=== PATIENT | male | born 1990 | race Two or more races ===

== ENCOUNTER → 2024-08-11 | Outpatient (BNVA) | payer MEDICAID, SELFPAY | END | disposition home or self-care (01) | PROVIDERS: PCP Nurse Practitioner Family; Referring Provider Nurse Practitioner Family; Visit Provider Nurse Practitioner Family | DX: Z71.2 Person consulting for explanation of examination or test findings (principal); R94.5 Abnormal results of liver function studies; E55.9 Vitamin D deficiency, unspecified; E78.5 Hyperlipidemia, unspecified; E66.9 Obesity, unspecified; Z68.30 Body mass index [BMI] 30.0-30.9, adult; R73.03 Prediabetes | CPT/HCPCS: 99213 ==

== ENCOUNTER 2024-09-15 18:53 | Emergency (ER) | payer MEDICAID, SELFPAY ==
[2024-09-15 19:15] VITALS: BP 128/81; PULSE 83; RESP 18; TEMP 37.2; O2SAT 98
--- NOTE | 2024-09-15 19:22 | XR_ITS ---
Examination: Tibia-Fibula, left , 2 views Technique: Tibia-fibula AP lateral 2 views Date and time of exam: September 15, 2024 1929 hrs. Indications: Patient slipped and fell 2 days ago with injury to the lower leg, lower leg pain. Findings: No acute fracture No dislocation No foreign body Impression: No acute fracture
--- NOTE | 2024-09-15 20:02 | PD.EDLOWEX ---
Lower Extremity Injury RME/HPI General Chief Complaint: Fall Stated Complaint: Fall 2 days ago left lower leg pain Time Seen by Provider: 09/15/24 19:22 Arrival date/time: 09/15/24 18:53 34M with history of preDM presents to ED with L lower leg pain after he stepped through a board and cut himself. Patient has not had a tetanus shot in the past 5 years. Limitations: no limitations Related Data Previous Rx's ?Medication ?Instructions ?Recorded ergocalciferol (vitamin D2) 1,250 50,000 unit PO QWEEK 12 weeks #12 08/11/24 mcg (50,000 unit) capsule caps cephalexin 500 mg capsule 500 mg PO QID 10 days #40 caps 09/15/24 Allergies Allergy/AdvReac Type Severity Reaction Status Date / Time aspirin Allergy Verified 08/11/24 15:14 Review of Systems Review of Systems Systems Reviewed: All systems reviewed, normal except as documented Constitutional Constitutional: Reports system reviewed and no additional complaints, except as documented, Denies fever(s) and Denies headache(s) ENT Ears, Nose, Mouth, and Throat: Denies disequilibrium and Denies headache(s) Cardiovascular Cardiovascular: Reports system reviewed and no additional complaints, except as documented, Denies chest pain and Denies dyspnea Respiratory Respiratory: Reports system reviewed and no additional complaints, except as documented, Denies cough and Denies dyspnea Gastrointestinal Gastrointestinal: Reports system reviewed and no additional complaints, except as documented, Denies abdominal pain, Denies nausea and Denies vomiting Musculoskeletal Musculoskeletal: Reports as per HPI and Reports arthralgias Neurologic Neurologic: Reports system reviewed and no additional complaints, except as documented, Denies confusion, Denies disequilibrium and Denies headache(s) Psychiatric Psychiatric: Denies confusion Past Medical History Past Medical History CARDIAC: Negative Congestive Heart Failure RESPIRATORY: Negative Chronic Obstructive Pulmonary Disease (COPD) GENITOURINARY: Negative Renal Disease ENDOCRINE: Negative Diabetes Mellitus Type 1 or Diabetes Mellitus Type 2 Social History SMOKING STATUS: Never smoker SECOND HAND EXPOSURE: Yes ED Exam General Limitations: Present no limitations General appearance: Present alert and in no apparent distress Head Head exam: Present atraumatic Eye Eye exam: Present normal appearance, PERRL and EOMI ENT ENT exam: Present normal exam, normal oropharynx and mucous membranes moist Neck Neck exam: Present normal inspection, full ROM and trachea midline Chest Chest inspection: Present normal inspection and symmetric chest wall rise Respiratory Respiratory exam: Present normal lung sounds bilaterally Cardiovascular Cardiovascular exam: Present regular rate, normal rhythm and normal heart sounds Abdominal Exam Abdominal exam: Present soft and normal bowel sounds Extremities Exam Extremities exam: Present full ROM Expanded Lower Extremity Exam Lower leg exam: Present full ROM (L), tenderness and abrasion Back Exam Back exam: Present normal inspection and full ROM Neurological Exam Neurological exam: Present alert, oriented X3 and CN II-XII intact Psychiatric Psychiatric exam: Present normal affect and normal mood Skin Skin exam: Present warm, dry, intact and normal color Course Quality Measures none Orders Category Date Time Status CT ankle LT wo con Stat Exams 09/15/24 20:06 Completed US venous doppler LE LT Stat Exams 09/15/24 20:07 Completed XR tibia fibula LT 2V Stat Exams 09/15/24 19:22 Completed Tet,Diphth,Pertuss(Acell)-Tdap [Boostrix Vacc] Med 09/15/24 20:08 Discontinued 0.5 ml IMI .ONCE ONE cephALEXin [Keflex] Med 09/15/24 22:06 Discontinued 1,000 mg PO X1 ONE Vital Signs Vital signs: Vital Signs Temperature 98.9 F 09/15/24 19:15 Pulse Rate 83 09/15/24 19:15 Respiratory Rate 18 09/15/24 19:15 Blood Pressure 128/81 09/15/24 19:15 Pulse Oximetry (%) 98 09/15/24 19:15 Oxygen Delivery Method Room Air 09/15/24 19:15 O2 at 98% on RA and WNLs Extremity Injury, Lower MDM Narrative MDM Narrative:: 34M with history of preDM presents to ED with L lower leg pain after he stepped through a board and cut himself. Patient has not had a tetanus shot in the past 5 years. Physical exam reveals healing abrasion on L lower leg. No obvious redness or swelling, but quite tender. ROM intact. Patient is afebrile, calm, and alert. XR no fx. US no DVT. CT cellulitis pattern with no gas/nec fasc. ABX and tdap given. Patient data External records reviewed:: [facility] previous records Clinical information provided by:: patient Social determinants that could affect healthcare access:: none Patient has the following chronic illnesses:: preDM How is presenting disease/condition affected by chronic disease/condition?: exacerbated by Evaluation data The following diagnostics were reviewed and interpreted by me:: radiology exam(s) Lab and/or radiology exams considered but not ordered:: ordered Interpretation Summary: above Medications / Prescriptions Medications or Prescriptions considered but not ordered:: ordered Medication administrations:: Medication Administration History Discontinued Medications Cephalexin HCl (Cephalexin 250 Mg Capsule) 1,000 mg PO X1 ONE Stop: 09/15/24 22:07 Last Admin: 09/15/24 22:21 Dose: 1,000 mg Documented By: CVL Diphtheria/Tetanus/Acell Pertussis (Diphth,Pertuss(Acell),Tet Vac 0.5 Ml Vial) 0.5 ml IMi .ONCE ONE Stop: 09/15/24 20:09 Last Admin: 09/15/24 21:09 Dose: 0.5 ml Documented By: above Consultations Consultation(s) initiated? (list below): No Diagnosis Extremity Injury, Lower Differential Diagnosis: ankle sprain and strain, acute internal derangement of knee, puncture wound of foot, fracture of toe, ankle fracture and other (cellulitis, skin abrasion, neck fasc, leg pain, DVT) Most likely diagnosis given after review of the tests above:: skin abrasion and cellulitis Admission Indicated Admission indicated?: not indicated Admission Request Was there a request for admission?: No Disposition Plan Disposition Plan: Discharge Discharge Attestation Discharge Attestation: The patient and all family members were given an opportunity to ask questions and understood the discharge instructions. Discharge instructions specifically effects, indications for sooner follow up or return to the emergency department, and the expected course of current diagnosis. Patient condition: Stable Discharge Plan Plan Patient Disposition: HOME (Self Care) Disposition Comment: Stable Prescriptions/Referrals Prescriptions/Med Rec: New cephalexin 500 mg capsule 500 mg PO QID 10 Days Qty: 40 0RF No Action ergocalciferol (vitamin D2) 1,250 mcg (50,000 unit) capsule 50,000 unit PO QWEEK 84 Days Qty: 12 0RF Referrals: Rekha Anaya FNP [Primary Care Provider] - In 1 week Problem List Clinical Impression: Cellulitis, Abrasion of skin Patient/Caregiver Discharge Instructions Education Materials: ED Cellulitis Additional Instructions: Please follow-up with PCP within 24-48 hours and return immediately if symptoms worsen. Print Language: Maltese Stand Alone Forms: Patient Portal Info Letter JANETT/LORETTA Supervising Physician PA/[employer] Supervising Physician: Dr. Kulkarni
--- NOTE | 2024-09-15 20:06 | XR_ITS ---
Examination: CT right lower leg, ankle, without contrast. 2-D sagittal reconstructions. 2-D coronal reconstructions. 3-D reconstructions. Date and time of exam:September 15, 20242054 hrs. Indications: Redness swelling and pain involving the lower leg and ankle today CTDI: vol (mGy):6.45 DLP: (mGycm):219 Technique: Multiple 1.25 mm axial sections of the lower leg ankle have been obtained. 2-D sagittal and coronal reconstructions have been obtained. 3-D reconstructions have been obtained. Low dose protocols were performed. One or more of the following dose reduction techniques were used; automated exposure control, adjustment of the mA and/or KV according to patient size, use of iterative reconstruction technique. Findings: Edema in the subcutaneous tissue anterior and medial to the lower leg and ankle Pronounced edema plantar surface of the foot ankle No fracture No shara cortical bone destruction No opaque foreign body No necrotizing fasciitis pattern Impression: Cellulitis pattern of the lower leg and ankle No shara cortical bone destruction No opaque foreign body No soft tissue abscess or findings of necrotizing fasciitis Iterative symptoms persist, consider MRI ankle without contrast follow-up
--- NOTE | 2024-09-15 20:07 | XR_ITS ---
Examination: Duplex scan of the lower extremity, unilateral left complete Date and time of exam: September 15, 2024 2154 hrs. Indications: Patient fell 2 years ago with injury to the left leg followed by left leg pain Technique: Duplex scan of the extremity veins using B-mode/grayscale imaging and Doppler spectral analysis and color flow Attention is directed to internal echogenicity, compression and augmentation involving these veins, color flow assessment, spectral analysis Findings: Major deep venous structures in the extremity demonstrate normal course and caliber. There is no evidence of deep vein thrombosis. Normal color flow and spectral analysis Impression: Negative for DVT..
[2024-09-15] MEDS: DIPHTH,PERTUSS(ACELL),TET VAC 0.5 ML VIAL IMi (21:09)
[2024-09-15] MEDS: cephALEXin 250 MG CAPSULE 1000 MG PO (22:21)
[2024-09-15 22:23] VITALS: RESP 18
== END 2024-09-15 22:23 | disposition home or self-care (01) ==
PROVIDERS: Emergency Provider Emergency Medicine; PCP Nurse Practitioner Family
DX: S80.812A Abrasion, left lower leg, initial encounter (principal); W45.8XXA Other foreign body or object entering through skin, initial encounter; L03.116 Cellulitis of left lower limb; Z23 Encounter for immunization
CPT/HCPCS: 73590; 73700; 90471; 90715; 93971; 99284; A9270

== ENCOUNTER → 2024-12-02 | Outpatient (BNVA) | payer MEDICAID, SELFPAY | END | disposition home or self-care (01) | PROVIDERS: PCP Nurse Practitioner Family; Referring Provider Nurse Practitioner Family; Visit Provider Nurse Practitioner Family | DX: Z71.2 Person consulting for explanation of examination or test findings (principal); E78.5 Hyperlipidemia, unspecified; R73.03 Prediabetes | CPT/HCPCS: 99213 ==

== ENCOUNTER → 2025-01-23 | Outpatient (BNVA) | payer MEDICAID, SELFPAY | END | disposition home or self-care (01) | PROVIDERS: PCP Nurse Practitioner Primary Care; Referring Provider Nurse Practitioner Primary Care; Visit Provider Nurse Practitioner Primary Care | DX: J30.2 Other seasonal allergic rhinitis (principal) | CPT/HCPCS: 96372; 99213; J3301 ==

== ENCOUNTER → 2025-01-31 | Outpatient (BNVA) | payer MEDICAID, SELFPAY | END | disposition home or self-care (01) | PROVIDERS: PCP Nurse Practitioner Primary Care; Referring Provider Nurse Practitioner Primary Care; Visit Provider Nurse Practitioner Primary Care | DX: J30.2 Other seasonal allergic rhinitis (principal) | CPT/HCPCS: 99212; G0463 ==

== ENCOUNTER → 2025-06-12 | Outpatient (BNVA) | payer MEDICAID, SELFPAY | END | disposition home or self-care (01) | PROVIDERS: PCP Nurse Practitioner Family; Referring Provider Nurse Practitioner Family; Visit Provider Nurse Practitioner Family | DX: Z71.2 Person consulting for explanation of examination or test findings (principal); R73.03 Prediabetes; E78.5 Hyperlipidemia, unspecified; R94.5 Abnormal results of liver function studies; R10.9 Unspecified abdominal pain | CPT/HCPCS: 99214 ==

== ENCOUNTER → 2025-08-07 | Outpatient (BNVA) | payer MEDICAID, SELFPAY | END | disposition home or self-care (01) | PROVIDERS: PCP Nurse Practitioner Family; Referring Provider Nurse Practitioner Family; Visit Provider Nurse Practitioner Family | DX: Z00.01 Encounter for general adult medical examination with abnormal findings (principal); Z68.41 Body mass index [BMI] 40.0-44.9, adult; E66.9 Obesity, unspecified; Z11.3 Encounter for screening for infections with a predominantly sexual mode of transmission; E78.5 Hyperlipidemia, unspecified; R73.03 Prediabetes; E55.9 Vitamin D deficiency, unspecified; R94.5 Abnormal results of liver function studies; Z23 Encounter for immunization; Z71.85 Encounter for immunization safety counseling; R10.9 Unspecified abdominal pain | CPT/HCPCS: 90471; 90686; 99173; 99395; G0008; G0439 ==

== ENCOUNTER → 2025-08-16 | Outpatient (CLI) | payer MEDICAID, SELFPAY ==
--- NOTE | 2025-08-16 13:00 | XR_ITS ---
Examination: Abdomen sonogram, complete Date and time of exam: August 16, 2025, 1137 hours INDICATIONS: Mid abdominal pain beginning 4 days ago. Technique: Multiple real-time grayscale transabdominal sonographic images of the abdomen have been obtained. Findings: Normal gallbladder Normal common bile duct 0.4 cm Pancreatic head 2.0 cm Aorta not enlarged Liver 15.9 cm fatty infiltration Normal hepatopetal portal venous flow Patent IVC Right kidney 12.4 cm renal cortex 2.2 cm Left kidney 13.2 cm renal cortex 2.4 cm Mild left renal scar formation Spleen 12.1 cm IMPRESSION: Normal gallbladder Normal common bile duct
== END | disposition home or self-care (01) ==
PROVIDERS: PCP Nurse Practitioner Family; Referring Provider Nurse Practitioner Family; Visit Provider Nurse Practitioner Family
DX: R10.9 Unspecified abdominal pain (principal); R74.8 Abnormal levels of other serum enzymes
CPT/HCPCS: 76700

== ENCOUNTER → 2025-08-23 | Outpatient (BNVA) | payer MEDICAID, SELFPAY | END | disposition home or self-care (01) | PROVIDERS: PCP Nurse Practitioner Primary Care; Referring Provider Nurse Practitioner Primary Care; Visit Provider Nurse Practitioner Primary Care | DX: R10.13 Epigastric pain (principal) | CPT/HCPCS: 99212; G0463 ==